=== PATIENT | female | born 1970 | race American Indian/Alaskan Native ===

== ENCOUNTER 2019-10-13 20:08 | Emergency (ER) | payer BC ==
--- NOTE | 2019-10-13 22:34 | Event Note ---
ED Screening Note Date of service: 10/13/19 Time: 22:31 ED Screening Note: 49 year old female presents with heavy vaginal bleeding x 2 weeks PMH of fibroids cc of dizziness and fatigue This initial assessment/diagnostic orders/clinical plan/treatment(s) is/are subject to change based on patients health status, clinical progression and re- assessment by fellow clinical providers in the ED. Further treatment and workup at subsequent clinical providers discretion. Patient/guardian urged not to elope from the ED as their condition may be serious if not clinically assessed and managed. Initial orders include: labs
[2019-10-13 23:10] LABS: Bilirubin,Urine NEG (Negative); Blood,Urine LG (Negative); Color,Urine Yellow (Yellow); Mucus,Urine FEW /HPF; RBC,Urine > 182.0 /HPF (0.0-6.0)
[2019-10-13 23:18] LABS: Basophils % (Auto) 0.9 % (0.0-1.8); Eosinophils # (Auto) 0.2 K/mm3 (0.0-0.4); Eosinophils % (Auto) 6.2 % (0.0-4.3); Hematocrit 37.2 % (30.3-42.9); Hemoglobin 11.8 gm/dl (10.1-14.3); Lymphocytes # (Auto) 1.7 K/mm3 (1.2-5.4); Lymphocytes % (Auto) 42.6 % (13.4-35.0); Mean Corpuscular HGB Conc 32 % (30-34); Mean Corpuscular Volume 75 fl (79-97); Monocytes # (Auto) 0.3 K/mm3 (0.0-0.8); Monocytes % (Auto) 7.8 % (0.0-7.3); Platelet Count 175 K/mm3 (140-440); Red Blood Count 4.94 M/mm3 (3.65-5.03)
[2019-10-13] MEDS ORDERED: KETOROLAC 60 MG/2 ML INJ IM ONE (23:51)
[2019-10-14 00:28] LABS: BUN/Creatinine Ratio 13; Blood Urea Nitrogen 9 mg/dL (7-17); Calcium 9.1 mg/dL (8.4-10.2); Hemolysis Index 6
--- NOTE | 2019-10-14 00:51 | Emergency Department Report ---
ED General Adult HPI - General Chief complaint: Vaginal Bleeding Stated complaint: VAGINAL BLEEDING X2 WKS Time Seen by Provider: 10/13/19 23:49 Source: patient Mode of arrival: Ambulatory Limitations: No Limitations - History of Present Illness Initial comments: Patient is a 49-year-old -Citizen Of [place] female with a past medical history of fibroids who states she's had continuous heavy vaginal bleeding for the past 2 weeks. Patient says she has some crampy right lower quadrant tenderness. Patient also has a history of ovarian cysts in the past as well. Patient states she has some mild fatigue but denies shortness of breath chest pain or dizzi ness. Severity scale (0 -10): 5 - Related Data Previous Rx's Medication Instructions Recorded Last Taken Type amLODIPine 10 mg PO DAILY #30 tab 12/11/14 Unknown Rx Ciprofloxacin HCl [Ciprofloxacin 500 mg PO Q12H #10 tab 01/22/16 Unknown Rx TAB] guaiFENesin/CODEINE [Robitussin AC] 5 ml PO Q6H PRN #100 ml 01/22/16 Unknown Rx Ketorolac [Toradol] 10 mg PO Q6H PRN #12 tablet 10/14/19 Unknown Rx medroxyPROGESTERone ACETATE 10 mg PO DAILY #7 tablet 10/14/19 Unknown Rx [Provera] traMADoL [Ultram] 50 mg PO Q6HR PRN #12 tablet 10/14/19 Unknown Rx Allergies Allergy/AdvReac Type Severity Reaction Status Date / Time Penicillins Allergy Swelling Verified 09/09/13 23:36 Sulfa (Sulfonamide Allergy Anaphylaxis Verified 01/22/16 16:44 Antibiotics) ED Review of Systems ROS: Stated complaint: VAGINAL BLEEDING X2 WKS Other details as noted in HPI Comment: All other systems reviewed and negative ED Past Medical Hx - Past Medical History Previous Medical History?: Yes Hx Hypertension: Yes Additional medical history: chronic anemia / fibroids/ Ovarian Cyst - Surgical History Past Surgical History?: Yes Additional Surgical History: Uterine - Social History Smoking Status: Never Smoker Substance Use Type: None - Medications Home Medications: Home Medications Medication Instructions Recorded Confirmed Last Taken Type amLODIPine 10 mg PO DAILY #30 tab 12/11/14 01/22/16 Unknown Rx Ciprofloxacin HCl [Ciprofloxacin 500 mg PO Q12H #10 tab 01/22/16 Unknown Rx TAB] guaiFENesin/CODEINE [Robitussin AC] 5 ml PO Q6H PRN #100 ml 01/22/16 Unknown Rx Ketorolac [Toradol] 10 mg PO Q6H PRN #12 tablet 10/14/19 Unknown Rx medroxyPROGESTERone ACETATE 10 mg PO DAILY #7 tablet 10/14/19 Unknown Rx [Provera] traMADoL [Ultram] 50 mg PO Q6HR PRN #12 tablet 10/14/19 Unknown Rx ED Physical Exam - General Limitations: No Limitations General appearance: alert, in no apparent distress - Head Head exam: Present: atraumatic, normocephalic - Eye Eye exam: Present: normal appearance, PERRL, EOMI - ENT ENT exam: Present: mucous membranes moist - Neck Neck exam: Present: normal inspection - Respiratory Respiratory exam: Present: normal lung sounds bilaterally. Absent: respiratory distress, wheezes, rales, rhonchi - Cardiovascular Cardiovascular Exam: Present: regular rate, normal rhythm. Absent: systolic murmur, diastolic murmur, rubs, gallop - GI/Abdominal GI/Abdominal exam: Present: soft, tenderness (right lower quadrant), normal bowel sounds. Absent: distended, guarding, rebound, rigid - Extremities Exam Extremities exam: Present: normal inspection - Back Exam Back exam: Present: normal inspection - Neurological Exam Neurological exam: Present: alert, oriented X3 - Psychiatric Psychiatric exam: Present: normal affect, normal mood - Skin Skin exam: Present: warm, dry, intact, normal color. Absent: rash ED Course Vital Signs 10/13/19 10/14/19 10/14/19 20:24 00:00 00:26 Temperature 98.8 F Pulse Rate 78 Respiratory 18 18 18 Rate Blood Pressure 225/95 O2 Sat by Pulse 99 98 Oximetry ED Medical Decision Making - Lab Data Result diagrams: 10/13/19 22:47 10/13/19 23:55 Lab Results 10/13/19 10/13/19 10/13/19 Range/Units 22:46 22:47 22:47 WBC 4.0 L (4.5-11.0) K/mm3 RBC 4.94 (3.65-5.03) M/mm3 Hgb 11.8 (10.1-14.3) gm/dl Hct 37.2 (30.3-42.9) % MCV 75 L (79-97) fl MCH 24 L (28-32) pg MCHC 32 (30-34) % RDW 17.0 H (13.2-15.2) % Plt Count 175 (140-440) K/mm3 Lymph % (Auto) 42.6 H (13.4-35.0) % [place] % (Auto) 7.8 H (0.0-7.3) % Eos % (Auto) 6.2 H (0.0-4.3) % Baso % (Auto) 0.9 (0.0-1.8) % Lymph # 1.7 (1.2-5.4) K/mm3 [place] # 0.3 (0.0-0.8) K/mm3 Eos # 0.2 (0.0-0.4) K/mm3 Baso # 0.0 (0.0-0.1) K/mm3 Seg Neutrophils % 42.5 (40.0-70.0) % Seg Neutrophils # 1.7 L (1.8-7.7) K/mm3 Sodium (137-145) mmol/L Potassium (3.6-5.0) mmol/L Chloride (98-107) mmol/L Carbon Dioxide (22-30) mmol/L Anion Gap mmol/L BUN (7-17) mg/dL Creatinine (0.7-1.2) mg/dL Estimated GFR ml/min BUN/Creatinine Ratio % Glucose (65-100) mg/dL Calcium (8.4-10.2) mg/dL HCG, Qual (Negative) Urine Color Yellow (Yellow) Urine Turbidity Slightly-cloudy (Clear) Urine pH 6.0 (5.0-7.0) Ur Specific [place] 1.018 (1.003-1.030) Urine Protein 30 mg/dl (Negative) mg/dL Urine Glucose (UA) Neg (Negative) mg/dL Urine Ketones Neg (Negative) mg/dL Urine Blood Lg (Negative) Urine Nitrite Neg (Negative) Urine Bilirubin Neg (Negative) Urine Urobilinogen 2.0 (<2.0) mg/dL Ur Leukocyte Esterase Neg (Negative) Urine WBC (Auto) 8.0 H (0.0-6.0) /HPF Urine RBC (Auto) > 182.0 (0.0-6.0) /HPF U Epithel Cells (Auto) 1.0 (0-13.0) /HPF Urine Mucus Few /HPF Urine Yeast (Budding) Few /HPF Blood Type A POSITIVE 10/13/19 10/13/19 Range/Units 23:55 23:55 WBC (4.5-11.0) K/mm3 RBC (3.65-5.03) M/mm3 Hgb (10.1-14.3) gm/dl Hct (30.3-42.9) % MCV (79-97) fl MCH (28-32) pg MCHC (30-34) % RDW (13.2-15.2) % Plt Count (140-440) K/mm3 Lymph % (Auto) (13.4-35.0) % [place] % (Auto) (0.0-7.3) % Eos % (Auto) (0.0-4.3) % Baso % (Auto) (0.0-1.8) % Lymph # (1.2-5.4) K/mm3 [place] # (0.0-0.8) K/mm3 Eos # (0.0-0.4) K/mm3 Baso # (0.0-0.1) K/mm3 Seg Neutrophils % (40.0-70.0) % Seg Neutrophils # (1.8-7.7) K/mm3 Sodium 140 (137-145) mmol/L Potassium 4.1 (3.6-5.0) mmol/L Chloride 104.2 (98-107) mmol/L Carbon Dioxide 25 (22-30) mmol/L Anion Gap 15 mmol/L BUN 9 (7-17) mg/dL Creatinine 0.7 (0.7-1.2) mg/dL Estimated GFR > 60 ml/min BUN/Creatinine Ratio 13 % Glucose 100 (65-100) mg/dL Calcium 9.1 (8.4-10.2) mg/dL HCG, Qual Negative (Negative) Urine Color (Yellow) Urine Turbidity (Clear) Urine pH (5.0-7.0) Ur Specific [place] (1.003-1.030) Urine Protein (Negative) mg/dL Urine Glucose (UA) (Negative) mg/dL Urine Ketones (Negative) mg/dL Urine Blood (Negative) Urine Nitrite (Negative) Urine Bilirubin (Negative) Urine Urobilinogen (<2.0) mg/dL Ur Leukocyte Esterase (Negative) Urine WBC (Auto) (0.0-6.0) /HPF Urine RBC (Auto) (0.0-6.0) /HPF U Epithel Cells (Auto) (0-13.0) /HPF Urine Mucus /HPF Urine Yeast (Budding) /HPF Blood Type - Medical Decision Making The patient's hemoglobin is within normal limits. Despite the patient's heavy vaginal bleeding she is compensating well. Patient's does have elevated blood pressure however she did not take her medicines this morning. Patient is taking her blood pressure medicines here in the emergency department. Patient has no evidence of any end organ damage. Patient will be referred to [facility] and patient will be started on Provera. Critical care attestation.: If time is entered above; I have spent that time in minutes in the direct care of this critically ill patient, excluding procedure time. ED Disposition Clinical Impression: DUB (dysfunctional uterine bleeding), Hypertensive urgency Disposition: DC-01 TO HOME OR SELFCARE Is pt being admited?: No Does the pt Need Aspirin: No Condition: Stable Instructions: Hypertension (ED), Dysfunctional Uterine Bleeding (ED) Referrals: JOYA SHARMA MD [Staff Physician] - 3-5 Days Forms: Work/School Release Form(ED) Time of Disposition: 00:47
[2019-10-14 00:52] VITALS: BP 184/123
== END 2019-10-14 01:18 | disposition home or self-care (01) ==
LOC: ED 20:08
DX: N93.8 Other specified abnormal uterine and vaginal bleeding (principal); I16.0 Hypertensive urgency; I10 Essential (primary) hypertension; Z98.890 Other specified postprocedural states; Z79.899 Other long term (current) drug therapy; Z88.0 Allergy status to penicillin; Z88.2 Allergy status to sulfonamides
CPT/HCPCS: 36415; 80048; 81001; 84703; 85025; 86900; 86901; 96372; 99283; J1885

== ENCOUNTER 2020-09-03 11:38 | Emergency (ER) | payer BC ==
--- NOTE | 2020-09-03 13:49 | Emergency Department Report ---
ED General Adult HPI - General Chief complaint: Neck Pain/Injury Stated complaint: NECK,SHOULDER PAIN Time Seen by Provider: 09/03/20 13:44 Source: patient Mode of arrival: Ambulatory Limitations: No Limitations - History of Present Illness Initial comments: Patient is a 50-year-old female who presents emergency room with complaints of right-sided neck pain, right-sided shoulder pain, that radiates down her right arm that began 4 days ago. She denies any fall or injury. She states that occasionally feels a popping sensation to the right side of her neck and right shoulder. 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 She states that she had the same symptoms in 2016. She states that she saw an orthopedic at that time and was diagnosed with bone spurs and DDD. She denies any numbness or weakness. She has a past medical history of hypertension. She states that she has not taken her blood pressure medication in about a week. She states that she is not very compliant and just takes it when she remembers. She states that she does have her blood pressure medication at home. She has an allergy to penicillin and sulfa. Last menstrual cycle a week ago. - Related Data Previous Rx's Medication Instructions Recorded Last Taken Type amLODIPine 10 mg PO DAILY #30 tab 12/11/14 Unknown Rx Ciprofloxacin HCl [Ciprofloxacin 500 mg PO Q12H #10 tab 01/22/16 Unknown Rx TAB] guaiFENesin/CODEINE [Robitussin AC] 5 ml PO Q6H PRN #100 ml 01/22/16 Unknown Rx Ketorolac [Toradol] 10 mg PO Q6H PRN #12 tablet 10/14/19 Unknown Rx medroxyPROGESTERone ACETATE 10 mg PO DAILY #7 tablet 10/14/19 Unknown Rx [Provera] traMADoL [Ultram] 50 mg PO Q6HR PRN #12 tablet 10/14/19 Unknown Rx Menthol/Camphor [[place] 1 applicatio TP BID #8 oint...g. 09/03/20 Unknown Rx Ointment] Naproxen [EC-Naprosyn] 500 mg PO BID PRN #20 tablet. 09/03/20 Unknown Rx Prednisone [predniSONE 10 mg 10 mg PO .TAPER #1 tab.ds.pk 09/03/20 Unknown Rx (6-Day Pack, 21 Tabs)] methOCARBAMOL [Robaxin TAB] 500 mg PO BID PRN #14 tab 09/03/20 Unknown Rx Allergies Allergy/AdvReac Type Severity Reaction Status Date / Time Penicillins Allergy Swelling Verified 09/09/13 23:36 Sulfa (Sulfonamide Allergy Anaphylaxis Verified 01/22/16 16:44 Antibiotics) ED Review of Systems ROS: Stated complaint: NECK,SHOULDER PAIN Other details as noted in HPI Comment: All other systems reviewed and negative ED Past Medical Hx - Past Medical History Previous Medical History?: Yes Hx Hypertension: Yes Additional medical history: chronic anemia / fibroids/ Ovarian Cyst - Surgical History Past Surgical History?: Yes Additional Surgical History: Uterine - Social History Smoking Status: Never Smoker Substance Use Type: None - Medications Home Medications: Home Medications Medication Instructions Recorded Confirmed Last Taken Type amLODIPine 10 mg PO DAILY #30 tab 12/11/14 01/22/16 Unknown Rx Ciprofloxacin HCl [Ciprofloxacin 500 mg PO Q12H #10 tab 01/22/16 Unknown Rx TAB] guaiFENesin/CODEINE [Robitussin AC] 5 ml PO Q6H PRN #100 ml 01/22/16 Unknown Rx Ketorolac [Toradol] 10 mg PO Q6H PRN #12 tablet 10/14/19 Unknown Rx medroxyPROGESTERone ACETATE 10 mg PO DAILY #7 tablet 10/14/19 Unknown Rx [Provera] traMADoL [Ultram] 50 mg PO Q6HR PRN #12 tablet 10/14/19 Unknown Rx Menthol/Camphor [[place] 1 applicatio TP BID #8 oint...g. 09/03/20 Unknown Rx Ointment] Naproxen [EC-Naprosyn] 500 mg PO BID PRN #20 tablet.dr 09/03/20 Unknown Rx Prednisone [predniSONE 10 mg 10 mg PO .TAPER #1 tab.ds.pk 09/03/20 Unknown Rx (6-Day Pack, 21 Tabs)] methOCARBAMOL [Robaxin TAB] 500 mg PO BID PRN #14 tab 09/03/20 Unknown Rx ED Physical Exam - General Limitations: No Limitations General appearance: alert, in no apparent distress - Head Head exam: Present: atraumatic, normocephalic - Eye Eye exam: Present: normal appearance - ENT ENT exam: Present: mucous membranes moist - Neck Neck exam: Present: normal inspection, tenderness (right sided cervical paraspinal muscular ttp, no midline C-spine ttp, no step offs, no deformities, no crepitus, no ecchymosis), full ROM - Respiratory Respiratory exam: Present: normal lung sounds bilaterally. Absent: respiratory distress, wheezes, rales, rhonchi, stridor, chest wall tenderness, accessory muscle use, decreased breath sounds, prolonged expiratory - Cardiovascular Cardiovascular Exam: Present: regular rate, normal rhythm, normal heart sounds. Absent: systolic murmur, diastolic murmur, rubs, gallop - Extremities Exam Extremities exam: Present: other (right sided trapezius ttp, no bony RUE ttp, FROM of the RUE, neurovascularly intact) - Back Exam Back exam: Present: normal inspection, full ROM. Absent: paraspinal tenderness, vertebral tenderness - Neurological Exam Neurological exam: Present: alert, oriented X3, CN II-XII intact, normal gait. Absent: motor sensory deficit - Psychiatric Psychiatric exam: Present: normal affect, normal mood - Skin Skin exam: Present: warm, dry, intact ED Course Vital Signs 09/03/20 09/03/20 09/03/20 11:59 14:11 14:12 Temperature 98.8 F Pulse Rate 78 68 72 Respiratory 18 Rate Blood Pressure 210/117 204/109 170/89 [Right] O2 Sat by Pulse 99 Oximetry ED Medical Decision Making - Medical Decision Making Patient is a 50-year-old female who presents emergency room with complaints of right-sided neck pain, right-sided shoulder pain, that radiates down her right arm that began 4 days ago. She denies any fall or injury. She states that occasionally feels a popping sensation to the right side of her neck and right shoulder. 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 She states that she had the same symptoms in 2016. She states that she saw an orthopedic at that time and was diagnosed with bone spurs and DDD. She denies any numbness or weakness. She has a past medical history of hypertension. She states that she has not taken her blood pressure medication in about a week. She states that she is not very compliant and just takes it when she remembers. She states that she does have her blood pressure medication at home. She has an allergy to penicillin and sulfa. Last menstrual cycle a week ago. Vitals with elevated blood pressure, patient has not taken her medication in a week, she states that she does have it at home and will take it when she returns home, she is not having any symptoms related to her blood pressure. She denies any headache, chest pain, shortness of breath, vision changes, complete numbness, unilateral weakness. When nurse repeated vitals she had a discrepancy between the blood pressures, could be related to air versus cuff size. I repeated patient's blood pressure and it is 195/91. She is not having symptoms related to a dissection. Her symptoms appear most consistent with cervical radiculopathy versus herniated disc versus muscle strain. Discussed all findings with patient and answered questions. Patient will be referred to her primary care doctor and orthopedic/spine. Patient given prescription for naproxen, prednisone, Robaxin, [place] balm ointment. Advised patient Please take medication as prescribed. Do not drive or operate heavy machinery while taking muscle relaxer Robaxin due to potential for drowsiness. May use ice pack, heating pad, rest, Epson salt bath. Follow-up with a orthopedic/spine doctor. Follow-up with a primary care doctor. Please discuss with your primary care doctor about the elevation in your blood pressure. Please take your blood pressure medication every day as prescribed by your primary care doctor. Eat a low-sodium/low salt diet. Increase your water intake. Incorporate 30 to 60 minutes of aerobic exercise daily. Return to emergency room immediately for any new or worsening symptoms. Critical care attestation.: If time is entered above; I have spent that time in minutes in the direct care of this critically ill patient, excluding procedure time. ED Disposition Clinical Impression: Neck pain on right side, Right arm pain, Cervical radiculopathy, Elevated blood pressure reading Right shoulder pain Qualifiers: Chronicity: acute Qualified Code(s): M25.511 - Pain in right shoulder Disposition: DC-01 TO HOME OR SELFCARE Is pt being admited?: No Does the pt Need Aspirin: No Condition: Stable Instructions: Cervical Radiculopathy (ED), Low Sodium Diet (ED), Hypertension (ED) Additional Instructions: Please take medication as prescribed. Do not drive or operate heavy machinery while taking muscle relaxer Robaxin due to potential for drowsiness. May use ice pack, heating pad, rest, Epson salt bath. Follow-up with a orthopedic/spine doctor. Follow-up with a primary care doctor. Please discuss with your primary care doctor about the elevation in your blood pressure. Please take your blood pressure medication every day as prescribed by your primary care doctor. Eat a low-sodium/low salt diet. Increase your water intake. Incorporate 30 to 60 minutes of aerobic exercise daily. Return to emergency room immediately for any new or worsening symptoms. Prescriptions: Naproxen [EC-Naprosyn] 500 mg PO BID PRN #20 tablet.dr PRN Reason: pain Prednisone [predniSONE 10 mg (6-Day Pack, 21 Tabs)] 10 mg PO .TAPER #1 tab.ds.pk methOCARBAMOL [Robaxin TAB] 500 mg PO BID PRN #14 tab PRN Reason: pain Menthol/Camphor [[place] Ointment] 1 applicatio TP BID #8 oint...g. Referrals: [facility] [Provider Group] - 2-3 Days TIM LARSON II, MD [Staff Physician] - 2-3 Days your, primary care doctor [Other] - 2-3 Days Forms: Work/School Release Form(ED) Time of Disposition: 13:48 Print Language: EGYPTIAN
[2020-09-03 14:13] VITALS: BP 170/89
== END 2020-09-03 14:11 | disposition home or self-care (01) ==
LOC: ED 11:38
DX: M54.12 Radiculopathy, cervical region (principal); R03.0 Elevated blood-pressure reading, without diagnosis of hypertension; M54.2 Cervicalgia; M79.601 Pain in right arm; M25.511 Pain in right shoulder; I10 Essential (primary) hypertension; D64.9 Anemia, unspecified; Z79.899 Other long term (current) drug therapy; Z88.2 Allergy status to sulfonamides; Z88.0 Allergy status to penicillin; Z98.890 Other specified postprocedural states
CPT/HCPCS: 99282

== ENCOUNTER 2022-04-21 13:45 | Emergency (ER) | payer BC ==
--- NOTE | 2022-04-21 15:22 | XRay Report ---
CHEST 2 VIEWS INDICATION / CLINICAL INFORMATION: COUGH. COMPARISON: None available. FINDINGS: SUPPORT DEVICES: None. HEART / MEDIASTINUM: No significant abnormality. LUNGS / PLEURA: No significant pulmonary or pleural abnormality. No pneumothorax. ADDITIONAL FINDINGS: No significant additional findings. IMPRESSION: 1. No acute findings. Signer Name: Brayden Peters MD Signed: 04/21/2022 3:18 PM Workstation Name: [employer]
--- NOTE | 2022-04-21 17:15 | Emergency Department Report ---
- General Chief Complaint: Upper Respiratory Infection Stated Complaint: COUGH Source: patient Mode of arrival: Ambulatory Limitations: No Limitations - History of Present Illness Initial Comments: Patient is a 51-year-old -Turkmen female with a history of hypertension, uterine fibroids and chronic iron deficiency anemia who presents to the ED with complaint of acute onset persistent nasal and sinus congestion, frontal sinus pressure and headache, persistent dry cough for the last 1 week. Patient states that she tested positive for COVID-19 viral infection a week ago but states that her cough and frontal sinus pressure have been persistent since she tested positive for COVID-19 viral infection. Patient denies dizziness, syncope, fever, chills, nausea and vomiting, sore throat, diarrhea, abdominal pain, chest pain or shortness of breath or change in vision and neck pain. MD Complaint: cough, rhinorrhea, nasal congestion, sinus pain -: week(s) (1) Severity: severe Severity scale (0 -10): 7 Quality: sharp, aching Consistency: constant Improves With: nothing Worsens With: nothing Context: other (Tested positive for COVID-19 1 week ago) Associated Symptoms: denies other symptoms, rhinorrhea, nasal congestion, cough. denies: fever, chills, myalgias, diaphoresis, headache, sore throat, stiff neck, chest pain, abdominal pain, nausea, vomiting, rash, right sweats, weight loss, epistaxis, hoarseness, ear pain Treatments Prior to Arrival: none - Related Data Previous Rx's Medication Instructions Recorded Last Taken Type amLODIPine 10 mg PO DAILY #30 tab 12/11/14 Unknown Rx Ciprofloxacin HCl [Ciprofloxacin 500 mg PO Q12H #10 tab 01/22/16 Unknown Rx TAB] guaiFENesin/CODEINE [Robitussin AC] 5 ml PO Q6H PRN #100 ml 01/22/16 Unknown Rx Ketorolac [Toradol] 10 mg PO Q6H PRN #12 tablet 10/14/19 Unknown Rx medroxyPROGESTERone ACETATE 10 mg PO DAILY #7 tablet 10/14/19 Unknown Rx [Provera] traMADoL [Ultram] 50 mg PO Q6HR PRN #12 tablet 10/14/19 Unknown Rx Menthol/Camphor [[place] 1 applicatio TP BID #8 oint...g. 09/03/20 Unknown Rx Ointment] Naproxen [EC-Naprosyn] 500 mg PO BID PRN #20 tablet.dr 09/03/20 Unknown Rx methOCARBAMOL [Robaxin TAB] 500 mg PO BID PRN #14 tab 09/03/20 Unknown Rx Azithromycin [Zithromax Z-HELLEN] 250 mg PO DAILY #6 tab 04/21/22 Unknown Rx Benzonatate [Tessalon Perles] 100 mg PO Q8HR #30 cap 04/21/22 Unknown Rx Cetirizine HCl [Zyrtec 10mg tab] 10 mg PO DAILY #30 tab 04/21/22 Unknown Rx Ibuprofen [Motrin] 800 mg PO Q8HR PRN #30 tablet 04/21/22 Unknown Rx Prednisone [predniSONE 10 mg 10 mg PO .TAPER #1 tab.ds.pk 04/21/22 Unknown Rx (6-Day Pack, 21 Tabs)] Allergies Allergy/AdvReac Type Severity Reaction Status Date / Time Penicillins Allergy Swelling Verified 09/09/13 23:36 Sulfa (Sulfonamide Allergy Anaphylaxis Verified 01/22/16 16:44 Antibiotics) ED Review of Systems ROS: Stated complaint: COUGH Other details as noted in HPI Constitutional: denies: chills, fever Eyes: denies: eye pain, eye discharge, vision change ENT: congestion. denies: ear pain, throat pain Respiratory: cough. denies: shortness of breath, wheezing Cardiovascular: denies: chest pain, palpitations Endocrine: no symptoms reported Gastrointestinal: denies: abdominal pain, nausea, vomiting, diarrhea Genitourinary: denies: urgency, dysuria, discharge Musculoskeletal: denies: back pain, joint swelling, arthralgia Skin: denies: rash, lesions Neurological: denies: headache, weakness, paresthesias Psychiatric: denies: anxiety, depression Hematological/Lymphatic: denies: easy bleeding, easy bruising ED Past Medical Hx - Past Medical History Previous Medical History?: Yes Hx Hypertension: Yes Additional medical history: chronic anemia / fibroids/ Ovarian Cyst - Surgical History Past Surgical History?: No Additional Surgical History: Uterine - Social History Smoking Status: Never Smoker - Medications Home Medications: Home Medications Medication Instructions Recorded Confirmed Last Taken Type amLODIPine 10 mg PO DAILY #30 tab 12/11/14 01/22/16 Unknown Rx Ciprofloxacin HCl [Ciprofloxacin 500 mg PO Q12H #10 tab 01/22/16 Unknown Rx TAB] guaiFENesin/CODEINE [Robitussin AC] 5 ml PO Q6H PRN #100 ml 01/22/16 Unknown Rx Ketorolac [Toradol] 10 mg PO Q6H PRN #12 tablet 10/14/19 Unknown Rx medroxyPROGESTERone ACETATE 10 mg PO DAILY #7 tablet 10/14/19 Unknown Rx [Provera] traMADoL [Ultram] 50 mg PO Q6HR PRN #12 tablet 10/14/19 Unknown Rx Menthol/Camphor [[place] 1 applicatio TP BID #8 oint...g. 09/03/20 Unknown Rx Ointment] Naproxen [EC-Naprosyn] 500 mg PO BID PRN #20 tablet.dr 09/03/20 Unknown Rx methOCARBAMOL [Robaxin TAB] 500 mg PO BID PRN #14 tab 09/03/20 Unknown Rx Azithromycin [Zithromax Z-HELLEN] 250 mg PO DAILY #6 tab 04/21/22 Unknown Rx Benzonatate [Tessalon Perles] 100 mg PO Q8HR #30 cap 04/21/22 Unknown Rx Cetirizine HCl [Zyrtec 10mg tab] 10 mg PO DAILY #30 tab 04/21/22 Unknown Rx Ibuprofen [Motrin] 800 mg PO Q8HR PRN #30 tablet 04/21/22 Unknown Rx Prednisone [predniSONE 10 mg 10 mg PO .TAPER #1 tab.ds.pk 04/21/22 Unknown Rx (6-Day Pack, 21 Tabs)] ED Physical Exam - General Limitations: No Limitations General appearance: alert, in no apparent distress - Head Head exam: Present: atraumatic, normocephalic, normal inspection - Eye Eye exam: Present: normal appearance, PERRL, EOMI Pupils: Present: normal accommodation - ENT ENT exam: Present: normal orophraynx, mucous membranes moist, TM's normal bilaterally, normal external ear exam, other (Grossly congested nasal passages; palpable frontal sinus tenderness) - Neck Neck exam: Present: normal inspection, full ROM. Absent: tenderness - Respiratory Respiratory exam: Present: normal lung sounds bilaterally. Absent: respiratory distress, wheezes, rales, rhonchi, chest wall tenderness, accessory muscle use, decreased breath sounds, prolonged expiratory - Cardiovascular Cardiovascular Exam: Present: regular rate, normal rhythm, normal heart sounds. Absent: systolic murmur, diastolic murmur, rubs, gallop - GI/Abdominal GI/Abdominal exam: Present: soft, normal bowel sounds. Absent: tenderness, guarding, rebound, hyperactive bowel sounds, hypoactive bowel sounds, organomeg joaquin - Extremities Exam Extremities exam: Present: normal inspection, full ROM, normal capillary refill. Absent: tenderness - Back Exam Back exam: Present: normal inspection, full ROM. Absent: tenderness, CVA tenderness (R), CVA tenderness (L), muscle spasm, paraspinal tenderness, vertebral tenderness - Neurological Exam Neurological exam: Present: alert, oriented X3, CN II-XII intact, normal gait, reflexes normal - Psychiatric Psychiatric exam: Present: normal affect, normal mood - Skin Skin exam: Present: warm, dry, intact, normal color. Absent: rash ED Course Vital Signs 04/21/22 14:49 Temperature 98.1 F Pulse Rate 86 Respiratory 18 Rate Blood Pressure 150/96 O2 Sat by Pulse 99 Oximetry ED Medical Decision Making - Radiology Data Radiology results: report reviewed, image reviewed [facility] [address] [place] [address] XRay Report Signed Patient: NIA DAMON MR#: [id number] : 1970 Acct:[id number] Age/Sex: 51 / F ADM Date: 04/21/22 Loc: ED Attending Dr: Ordering Physician: HENNA BUSBY MD Date of Service: 04/21/22 Procedure(s): XR chest routine 2V Accession Number(s): [id number] cc: ED MD KEHINDE Fluoro Time In Minutes: CHEST 2 VIEWS INDICATION / CLINICAL INFORMATION: COUGH. COMPARISON: None available. FINDINGS: SUPPORT DEVICES: None. HEART / MEDIASTINUM: No significant abnormality. LUNGS / PLEURA: No significant pulmonary or pleural abnormality. No pneumothorax. ADDITIONAL FINDINGS: No significant additional findings. IMPRESSION: 1. No acute findings. Signer Name: Brayden Peters MD Signed: 04/21/2022 3:18 PM Workstation Name: [id number] Transcribed By: LUKAS Dictated By: Brayden Peters MD Electronically Authenticated By: Brayden Peters MD Signed Date/Time: 04/21/221517 DD/ 17 TD/TT: Print - Medical Decision Making This is a 51-year-old -Turkmen female with a history of hypertension, uterine fibroids and chronic iron deficiency anemia who presents to the ED with complaint of acute onset persistent nasal and sinus congestion, frontal sinus pressure and headache, persistent dry cough for the last 1 week. Patient states that she tested positive for COVID-19 viral infection a week ago but states that her cough and frontal sinus pressure have been persistent since she tested positive for COVID-19 viral infection. In the ED, patient is alert and oriented x3 and is not in any distress. Patient vital signs are stable, with oxygen saturation of 99% on room air. Chest x-ray showed no acute cardiopulmonary abnormalities or pneumonitis. Patient will discharge home on medications and advised to follow-up with her primary care physician in 7 to 10 days for reevaluation. Patient was advised to return to the ED immediately if symptoms get worse. - Differential Diagnosis URI; sinusitis; COVID-19; pneumonia; bronchitis; Critical care attestation.: If time is entered above; I have spent that time in minutes in the direct care of this critically ill patient, excluding procedure time. ED Disposition Clinical Impression: Acute upper respiratory infection, Upper respiratory tract infection due to 2019 novel coronavirus Acute bronchitis Qualifiers: Bronchitis organism: other organism Qualified Code(s): J20.8 - Acute bronchitis due to other specified organisms Acute frontal sinusitis, unspecified Qualifiers: Recurrence: non-recurrent Qualified Code(s): J01.10 - Acute frontal sinusitis, unspecified Disposition: 01 HOME / SELF CARE / HOMELESS Is pt being admited?: No Does the pt Need Aspirin: No Condition: Stable Instructions: Acute Bronchitis (ED), Sinusitis, Adult, [id number], Upper Respiratory Infection, Adult, [id number], COVID-19: How to Protect Yourself and Others - CDC, Acute Bronchitis, Adult, [id number] Additional Instructions: The chest x-ray showed no acute cardiopulmonary abnormalities or pneumonitis. Take medication with food, drink plenty of fluids, follow-up with your primary care physician in 7 to 10 days for reevaluation. Return to the ED immediately if symptoms get worse. Prescriptions: Ibuprofen [Motrin] 800 mg PO Q8HR PRN #30 tablet PRN Reason: Pain , Severe (7-10) Prednisone [predniSONE 10 mg (6-Day Pack, 21 Tabs)] 10 mg PO .TAPER #1 tab.ds.pk Benzonatate [Tessalon Perles] 100 mg PO Q8HR #30 cap Azithromycin [Zithromax Z-HELLEN] 250 mg PO DAILY #6 tab Cetirizine HCl [Zyrtec 10mg tab] 10 mg PO DAILY #30 tab Referrals: [facility] [Provider Group] - 7-10 days Forms: Work/School Release Form(ED) Time of Disposition: 17:18 Print Language: CANADIAN
[2022-04-21 18:25] VITALS: BP 150/90
== END 2022-04-21 18:25 | disposition home or self-care (01) ==
LOC: ED 13:45
DX: U07.1 COVID-19 (principal); J06.9 Acute upper respiratory infection, unspecified; J20.9 Acute bronchitis, unspecified; J01.10 Acute frontal sinusitis, unspecified; I10 Essential (primary) hypertension; D64.9 Anemia, unspecified; D21.9 Benign neoplasm of connective and other soft tissue, unspecified; N83.209 Unspecified ovarian cyst, unspecified side; Z98.890 Other specified postprocedural states; Z88.0 Allergy status to penicillin; Z88.2 Allergy status to sulfonamides
CPT/HCPCS: 71046; 99283